=== PATIENT | female | born 1985 | race Caucasian/White ===

== ENCOUNTER 2018-10-04 03:43 | Emergency (ER) | payer OTHER, MEDICAID ==
[~2018-10-04] VITALS: Ht 149.9 cm; Wt 70.5 kg
[2018-10-04 03:53] VITALS: Ht 149.9 cm; Wt 70.5 kg
[2018-10-04 05:30] VITALS: BP 124/78
== END 2018-10-04 05:25 | disposition home or self-care (01) ==
LOC: ED 03:43
DX: S50.02XA Contusion of left elbow, initial encounter (principal); Z98.890 Other specified postprocedural states; W22.8XXA Striking against or struck by other objects, initial encounter; Y93.89 Activity, other specified; Y92.481 Parking lot as the place of occurrence of the external cause; Y99.8 Other external cause status
CPT/HCPCS: J1885; Q0092

== ENCOUNTER 2019-09-10 19:47 | Emergency (ER) | payer OTHER, MEDICAID ==
[~2019-09-10] VITALS: Ht 149.9 cm; Wt 75.3 kg
[2019-09-10 19:57] VITALS: Ht 149.9 cm; Wt 75.3 kg
[2019-09-10 21:36] VITALS: BP 124/87
== END 2019-09-10 21:36 | disposition home or self-care (01) ==
LOC: ED 19:47
DX: S60.222A Contusion of left hand, initial encounter (principal); Z94.0 Kidney transplant status; W06.XXXA Fall from bed, initial encounter; Y93.89 Activity, other specified; Y92.89 Other specified places as the place of occurrence of the external cause; Y99.8 Other external cause status
CPT/HCPCS: J1885